=== PATIENT | female | born 1995 | race Caucasian/White ===

== ENCOUNTER 2024-03-26 16:50 | Emergency (ER) | payer MEDICAID ==
[~2024-03-26] VITALS: Ht 170.2 cm; Wt 105.0 kg
[2024-03-26 17:00] VITALS: O2SAT 98
[2024-03-26 18:21] LABS: BASOPHILS % 1.3 % (0.0-2.0); EOSINOPHILS % 6.6 % (0.0-5.0); HEMATOCRIT. 40.1 % (36.0-48.0); HEMOGLOBIN. 13.5 g/dL (12.0-16.0); LYMPHOCYTES % 21.9 % (20.0-50.0); MEAN CORPUSCULAR HEMOGLOBIN 31.6 pg (28.0-32.0); MEAN CORPUSCULAR HGB CONC 33.7 g/dL (31.0-37.0); MEAN CORPUSCULAR VOLUME 93.5 fL (81.0-99.0); MEAN PLATELET VOLUME 7.6 fl (7.4-10.4); MONOCYTES % 7.6 % (2.0-8.0); NEUTROPHILS % 62.6 % (40.0-76.0); PLATELET 427 x1000/uL (130-400); RED BLOOD CELL COUNT 4.29 mill/uL (4.2-5.4); RED CELL DISTRIBUTION WIDTH 13.2 % (11.6-14.6); WHITE BLOOD COUNT 9.2 x1000/uL (4.5-11.0)
[2024-03-26 18:23] LABS: CHLORIDE 109 mEq/L (98-107); POTASSIUM 4.2 mEq/L (3.5-5.1); SODIUM 140 mEq/L (136-145)
[2024-03-26 18:24] LABS: CARBON DIOXIDE 27 mEq/L (21-32)
[2024-03-26 18:29] LABS: CREATININE 0.8 mg/dL (0.6-1.0)
[2024-03-26 18:30] LABS: GLUCOSE 88 mg/dL (70-105); UREA NITROGEN BLOOD 9 mg/dL (9-23)
[2024-03-26 18:51] LABS: HCG SCREEN NEGATIVE
[2024-03-26] MEDS ORDERED: ALBU18HF2 IH (18:54)
[2024-03-26 19:00] VITALS: BP 115/79; PULSE 85; RESP 19; TEMP 36.94740; O2SAT 99
[2024-03-26] MEDS: DEXAMETHASONE 4MG TABLET PO ONE (19:00)
== END 2024-03-27 02:30 | disposition home or self-care (01) ==
LOC: ER 16:50
DX: R05.9 Cough, unspecified (principal); B34.9 Viral infection, unspecified; J45.909 Unspecified asthma, uncomplicated; F31.9 Bipolar disorder, unspecified; F20.9 Schizophrenia, unspecified
CPT/HCPCS: 36415; 71045; 80048; 84703; 85025; 99284